=== PATIENT | male | born 1945 | race Caucasian/White ===

== ENCOUNTER → 2019-02-23 | Outpatient (REF) | payer MEDICARE, OTHER | LOC: M SMT 18:51 | PROVIDERS: ATTEND Nurse Practitioner Family | DX: C61 Malignant neoplasm of prostate (principal) | CPT/HCPCS: 87086; G0463 ==

== ENCOUNTER → 2019-03-02 | Outpatient (CLI) | payer MEDICARE, OTHER ==
--- NOTE | 2019-03-02 12:45 | REP ---
Prostate sonography: History: Elevated PSA Sonographic findings: Trans rectal prostate sonography demonstrates unremarkable seminal vesicles. Prostate gland is heterogeneously enlarged with calcifications and cystic changes noted. Glandular dimensions are measured at 6.3 x 4.1 x 5.7 cm with a calculated glandular volume of 75.9 ml. Transrectal sonographic guidance is provided to Dr. Cheek who performed trans rectal ultrasound guided needle biopsy procedure . Electronically Signed by Binu Dickerson MD 03/02/2019 12:37 P
== END ==
LOC: M SMT PRO 10:17
PROVIDERS: ATTEND Urology
DX: C61 Malignant neoplasm of prostate (principal)
CPT/HCPCS: 55700; 76872; 76942; G0416